=== PATIENT | female | born 1970 | race Two or more races ===

== ENCOUNTER 2019-12-03 16:15 | Emergency (ER) | payer MEDICAID ==
[~2019-12-03] VITALS: Ht 157.5 cm; Wt 71.7 kg
[2019-12-03] MEDS ORDERED: Promethazine/Codeine 5ml UD ORAL ONE (16:30)
[2019-12-03] MEDS ORDERED: Albuterol 90mcg Inhaler 8gm INH PRN ×2 (16:30→17:30)
[2019-12-03 16:33] VITALS: BP 124/79
--- NOTE | 2019-12-03 16:34 | Emergency Room Report ---
History of Present Illness General Chief Complaint: Upper Respiratory Illness Source: Patient Present Illness HPI 49-year-old female presents to the emergency department complaining of persistent dry painful cough for almost 1 week with associated sore throat and 7 /10 in severity body aches. Patient reports the first few days she did not have a cough she simply had 7 out of 10 severity body aches. Patient reports subjective fevers. She states she did not receive this years flu vaccine. Patient does not have any significant past medical history. Patient denies history of smoking, asthma or COPD. Patient reports slight hemoptysis due to persistent coughing. Denies recent travel. Denies contact with persons who have tested positive for or are under investigation/quarantine for COVID-19. She has not taken any medications today for her symptoms. She reports hx of bronchitis in the past. Allergies: Coded Allergies: AMOXICILLIN (Verified Allergy, Unknown, 12/03/19) COVID-19 Screening Contact w/high risk pt: No Recent Travel to affected area: No Experienced COVID-19 symptoms?: Yes COVID-19 symptoms experienced: Cough Patient History Past Surgical History: none Pertinent Family History: none Last Menstrual Period: depo shot Now: No Reviewed Nursing Documentation: PMH: Agreed; PSxH: Agreed Nursing Documentation-PMH Past Medical History: No History, Except For Review of Systems All Other Systems: negative except mentioned in HPI Physical Exam Vital Signs Date Time Temp Pulse Resp B/P (MAP) Pulse Ox O2 Delivery O2 Flow Rate FiO2 12/03/19 15:59 98.6 94 19 124/79 (94) 99 Room Air Sp02 EP Interpretation: reviewed, normal General Appearance: alert, GCS 15, non-toxic, mild distress - persistent coughing. Head: normocephalic, atraumatic Eyes: bilateral eye normal inspection, bilateral eye PERRL ENT: hearing grossly normal, normal pharynx, normal voice, uvula midline, nasal congestion Neck: full range of motion Respiratory: chest non-tender, lungs clear, normal breath sounds, speaking full sentences, wheezing, other - difficulty with inhalation without coughing Cardiovascular #1: regular rate, rhythm, no edema, normal capillary refill Musculoskeletal: back normal, normal range of motion, gait/station normal, non- tender Neurologic: alert, motor strength/tone normal, oriented x3, sensory intact, responsive, speech normal Psychiatric: judgement/insight normal Lymphatic: no adenopathy Medical Decision Making PA Attestation Dr. Patten is my supervising Physician whom patient management has been discussed with. Diagnostic Impression: Primary Impression: Bronchitis ER Course Pt. presents to the ED with s/sx c/w URI in the setting of a local COVID-19 Outbreak. - This PT. was triaged outside the facility in a designated staging area and placed into isolation tent. - Full PPE for airborne/droplet isolation (booties, Gown, doubled nitrile gloves, N95 Mask covered by Surgical mask w. face shield, and hair net) was donned in the designated HCP staging area prior to pt. interaction. 49-year-old female presents to the emergency department complaining of persistent dry painful cough for almost 1 week with associated sore throat and 7 /10 in severity body aches. Patient reports the first few days she did not have a cough she simply had 7 out of 10 severity body aches. Patient reports subjective fevers. She states she did not receive this years flu vaccine. Patient does not have any significant past medical history. Patient denies history of smoking, asthma or COPD. Patient reports slight hemoptysis due to persistent coughing. Denies recent travel. Denies contact with persons who have tested positive for or are under investigation/quarantine for COVID-19. She has not taken any medications today for her symptoms. She reports hx of bronchitis in the past. Ddx considered but are not limited to URI, pneumonia, PE, strep pharyngitis, meningitis, COVID-19, bronchitis Vital signs: Pt.is afebrile VS are WNL H&PE are most consistent with bronchitis- persistent dry tight cough, difficulty speaking without coughing. ORDERS: -CXR: WNL ED INTERVENTIONS: -HHN albuterol. -Cough Syrup PO DISCHARGE: At this time pt. is stable for d/c to home. Will provide printed patient care instructions, and any necessary prescriptions. Care plan and follow up instructions have been discussed with the patient prior to discharge. Chest X-Ray Diagnostic Results Chest X-Ray Diagnostic Results : Chest X-Ray Ordered: Yes # of Views/Limited/Complete: 1 View Indication: Shortness of Breath EP Interpretation: Yes NICK Xray: Interpretation reviewed, by supervising MD, and agrees with findings. Interpretation: no consolidation, no effusion, no pneumothorax, no acute cardiopulmonary disease Impression: No acute disease Electronically Signed by: Irish Garcia PA-C Last Vital Signs Date Time Temp Pulse Resp B/P (MAP) Pulse Ox O2 Delivery O2 Flow Rate FiO2 12/03/19 15:59 98.6 94 19 124/79 (94) 99 Room Air Status: improved Disposition: HOME, SELF-CARE Condition: Stable Scripts Oseltamivir Phosphate (Tamiflu) 75 Mg Capsule 75 MG ORAL TWICE A DAY for 5 Days, #10 CAP Prov: Irish Garcia 12/03/19 Naproxen* (NAPROXEN*) 500 Mg Tablet.dr 500 MG ORAL TWICE A DAY for 10 Days, #30 TAB Prov: Irish Garcia 12/03/19 Albuterol Sulfate* (ALBUTEROL SULFATE MDI*) 8.5 Gm Hfa.aer.ad 2 PUFF INH Q3H, #1 INH 0 Refills Prov: Irish Garcia 12/03/19 Codeine/Promethazine Hcl* (PROMETHAZINE-CODEINE SYRUP*) 118 Ml Syrup 5 ML ORAL Q6H PRN for For Cough, #120 ML 0 Refills Prov: Irish Garcia 12/03/19 Departure Forms: Return to Work Return to Work Date: Dec 17, 2019 Work Restrictions: None Return to Full Activity: Dec 03, 2019 Patient Instructions: Upper Respiratory Infection, Adult Additional Instructions: Debido a que los sntomas que experimenta son muy similares a los del nuevo virus COVID-19. Es fundamental que ponga en cuarentena en kim hogar rios las prximas 2 semanas. Se hadley determinado que usted es lo suficientemente estable roseanne para ser tratado roseanne paciente ambulatorio. Le darn medicamentos para tratar susan sntomas. Si susan sntomas empeoran significativamente o si tiene dificultad respiratoria, eso indicara un regreso inmediato al departamento de emergencias. Actualmente no existe un tratamiento especfico para sadie virus, solo tratamiento de susan sntomas. Take medications as directed. Do not drink alcohol, drive, or operate heavy machinery while taking Cough Syrup as this may cause drowsiness. Follow up with a Primary Care Provider in 3-5 days, even if your symptoms have resolved. --Please review list of primary care clinics, if you do not already have a primary care provider Return sooner to ED if new symptoms occur, or current symptoms become worse. - Please note that this Emergency Department Report was dictated using [employer] knitter technology software, occasionally this can lead to erroneous entry secondary to interpretation by the dictation equipment. Irish Garcia Dec 03, 2019 16:34
--- NOTE | 2019-12-03 16:37 | NUR ---
ED Nurse Note: pt arrives from home with c/o back pain x 2 weeks and a cough that started 3-20. no fever no n/v/d/abdpain c/o sore throat worsened with cough
[2019-12-03] MEDS ORDERED: Albuterol ud Inhalation HHN ONE (16:45)
--- NOTE | 2019-12-03 17:50 | NUR ---
ED Nurse Note:resp therapist here and administering mdi and giving instructions for use to pt. pt states painful cough slightly reduced after meds given. no increased dyspnea or c/o noted
[2019-12-03] MEDS ORDERED: ALBUTEROL SULF8.5 GM INH (18:07)
[2019-12-03] MEDS ORDERED: NAPROXEN500 M1 ORAL (18:07)
[2019-12-03] MEDS ORDERED: PROMETHAZINE-C118 M1 ORAL (18:07)
[2019-12-03] MEDS ORDERED: TAMIFLU75 MG ORAL (18:07)
[2019-12-03 18:24] VITALS: BP 124/79
--- NOTE | 2019-12-03 18:24 | NUR ---
ED Nurse Note: Pt cleared by health care Provider for discharge. DC instructions/prescription was given and explained to pt and verbalized understanding of teachings. All medical devices such as ID band removed. Pt is AAO x4, ambulatory and left with all personal belongings.
--- NOTE | 2019-12-04 11:14 | Diagnostic Imaging Report ---
Indication: Dyspnea Comparison: None A single view chest radiograph was obtained. Findings: Cardiomediastinal appearance is within normal limits for age. The lungs are clear. Pulmonary vascularity is appropriate. The diaphragmatic contour is smooth and costophrenic angles are sharp. No pleural effusions are identified. The bones are unremarkable. Impression: No acute findings
== END 2019-12-03 18:26 | disposition home or self-care (01) ==
LOC: EMR 16:38
DX: J20.9 Acute bronchitis, unspecified (principal); R07.0 Pain in throat; Z88.0 Allergy status to penicillin; Z03.818 Encounter for observation for suspected exposure to other biological agents ruled out
CPT/HCPCS: 71045; Z7502; 99284